=== PATIENT | female | born 1980 | race Caucasian/White ===

== ENCOUNTER 2020-10-14 10:59 | Emergency (ER) | payer SELFPAY ==
[~2020-10-14] VITALS: Ht 180.3 cm; Wt 64.0 kg
--- NOTE | 2020-10-14 11:20 | NUR ---
PT BIB FRIEND VIA POV. PER PT SHE HAS RELAPSED ON HEROIN AFTER 3 YEARS CLEAN. PT USED BOTH HEROIN AND METH APPROX A WEEK AGO. PT NOW HAS BILAT LOWER LEG SWELLING AND EDEMA. PT STATES NO MEDICAL HX. PT RESTING IN [facility], FRIEND AT BEDSIDE, [place] AT THIS TIME, WCTM.
[2020-10-14] MEDS ORDERED: KETOROLAC 30 MG/1 ML ONE (11:55)
[2020-10-14] MEDS ORDERED: MAALOX/HYOSCYAMINE/LIDOCAINE 45 ML BTL ONE (11:57)
[2020-10-14] MEDS ORDERED: ONDANSETRON 2MG/ML, 2ML ONE (11:57)
[2020-10-14] MEDS ORDERED: SODIUM CHLORIDE 0.9% 1,000ML IVBOLUS ONE (12:00)
[2020-10-14] MEDS ORDERED: AMPICILLIN/SULBACTAM 3 GM in SODIUM CHLORIDE 0.9% 100 ML IV ONE (12:00)
[2020-10-14] MEDS ORDERED: KETOROLAC 30 MG/1 ML IVPush ONE (12:00)
[2020-10-14] MEDS ORDERED: maalox/diphenh/lido/sucralfate 5 ML PO PRN (12:00)
[2020-10-14] MEDS ORDERED: ONDANSETRON 2MG/ML, 2ML IVPush ONE (12:00)
[2020-10-14 12:13] LABS: ALBUMIN 2.2 g/dL (3.4-5.0); ANION GAP 5 mmol/L (5-15); CHLORIDE 89 mmol/L (98-107)
[2020-10-14 12:18] LABS: ALANINE AMINOTRANSFERASE 37 U/L (12-78); ALKALINE PHOSPHATASE 192 U/L (45-117); BILIRUBIN,TOTAL 0.7 mg/dL (0.2-1.0); CREATININE 0.61 mg/dL (0.55-1.02); TOTAL PROTEIN 6.3 g/dL (6.4-8.2)
--- NOTE | 2020-10-14 12:23 | NUR ---
TASK RN: PIV PLACED. MEDS ADMIN PER AUG RUNNING. MED REQUESTED FROM JANEL. Addendum: 10/14/20 at 1226 by BRISSA REPORT GIVEN TO PRIMARY RN.
[2020-10-14 12:25] LABS: BASOPHILS % (AUTO) 0 % (0-1); EOSINOPHILS % (AUTO) 0 % (1-7); LYMPHOCYTES % (AUTO) 5 % (22-44); MEAN CORPUSCULAR HEMOGLOBIN 29.1 pg (27.0-34.8); MEAN CORPUSCULAR HGB CONC 33.9 g/dL (32.4-35.8); MEAN PLATELET VOLUME 7.3 fL (7.4-10.4); MONOCYTES % (AUTO) 3 % (2-9); NEUTROPHILS % (AUTO) 92 % (42-75); PLATELET COUNT 193 x10^3/uL (130-400); RED CELL DISTRIBUTION WIDTH 14.9 % (9.6-15.2)
[2020-10-14 12:51] LABS: MD SCAN
[2020-10-14] MEDS ORDERED: POTASSIUM CHLORIDE 10% 40 MEQ/30 ML UDC PO ONE (13:00)
[2020-10-14] MEDS ORDERED: POTASSIUM CHLORIDE 40 MEQ in SODIUM CHLORIDE 0.9% 250 ML IV ONE (13:00)
--- NOTE | 2020-10-14 13:40 | NUR ---
Plan of care discussed. Pt will be held for two more hours and monitored.
[2020-10-14 14:30] LABS: ALBUMIN 1.8 g/dL (3.4-5.0); ANION GAP 5 mmol/L (5-15); CALCIUM 7.5 mg/dL (8.5-10.1); CHLORIDE 94 mmol/L (98-107); CREATININE 0.49 mg/dL (0.55-1.02)
--- NOTE | 2020-10-14 15:07 | NUR ---
This RN spoke with Dr. Patel and Mora MURRELL. They are aware of patients labs and states that patient arturo be discharged home.
--- NOTE | 2020-10-14 15:41 | NUR ---
Patient states to this RN that she last used Heroin at 3am this morning and wants to be admitted, she wants help and she needs help to take care of herself. ERP Dr. Patel and Mora DEL RIO aware.
[2020-10-14 15:57] VITALS: BP 98/51
--- NOTE | 2020-10-14 16:11 | NUR ---
Pt request to discharge home and will follow up for detox for outpatient. 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
== END 2020-10-14 16:17 | disposition home or self-care (01) ==
LOC: ED 16:16
DX: F11.129 Opioid abuse with intoxication, unspecified (principal); F15.10 Other stimulant abuse, uncomplicated; F17.210 Nicotine dependence, cigarettes, uncomplicated; L03.115 Cellulitis of right lower limb; I49.1 Atrial premature depolarization; E87.6 Hypokalemia; E87.1 Hypo-osmolality and hyponatremia; Z79.899 Other long term (current) drug therapy
CPT/HCPCS: 36415; 80048; 80053; 82040; 83735; 83880; 85025; 93005; 93970; 96365; 96375; 99285; J0295; J1885; J2405; J3480; J7030; J7050

== ENCOUNTER 2020-10-20 14:05 | Inpatient (IN) | payer MEDICAID ==
[~2020-10-20] VITALS: Ht 177.8 cm; Wt 64.9 kg
[2020-10-20] MEDS ORDERED: KETOROLAC 30 MG/1 ML IVPush ONE (15:00)
[2020-10-20] MEDS ORDERED: AMPICILLIN/SULBACTAM 3 GM in SODIUM CHLORIDE 0.9% 100 ML IV ONE (15:00)
[2020-10-20] MEDS ORDERED: SODIUM CHLORIDE 0.9% 1,000ML IVBOLUS ONE (15:00)
[2020-10-20] MEDS ORDERED: ACETAMINOPHEN 325 MG TABLET PO ONE (15:00)
[2020-10-20] MEDS ORDERED: VANCOMYCIN PER PHARMACY MC PRN ×2 (15:00→21:00)
[2020-10-20 15:02] LABS: BASOPHILS % (AUTO) 1 % (0-1); EOSINOPHILS % (AUTO) 1 % (1-7); LYMPHOCYTES % (AUTO) 12 % (22-44); MEAN CORPUSCULAR HEMOGLOBIN 29.1 pg (27.0-34.8); MEAN CORPUSCULAR HGB CONC 33.5 g/dL (32.4-35.8); MEAN PLATELET VOLUME 6.7 fL (7.4-10.4); MONOCYTES % (AUTO) 6 % (2-9); NEUTROPHILS % (AUTO) 80 % (42-75); PLATELET COUNT 330 x10^3/uL (130-400); RED BLOOD COUNT 3.64 x10^6/uL (3.82-5.3); RED CELL DISTRIBUTION WIDTH 14.9 % (9.6-15.2)
[2020-10-20] MEDS ORDERED: KETOROLAC 30 MG/1 ML ONE (15:08)
[2020-10-20] MEDS ORDERED: ACETAMINOPHEN 325 MG TABLET ONE (15:08)
[2020-10-20 15:22] LABS: ALBUMIN 2.3 g/dL (3.4-5.0); ANION GAP 7 mmol/L (5-15); CALCIUM 8.4 mg/dL (8.5-10.1); CHLORIDE 95 mmol/L (98-107); CREATININE 0.73 mg/dL (0.55-1.02)
--- NOTE | 2020-10-20 15:30 | NUR ---
PT BIB SELF FOR COMPLAINTS OF SPASMS IN LOW BACK AND L LEG. BILAT V SWOLLEN FEET AND LOWER LEGS. 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 (HEROIN AND METH). PT RESTING IN [facility], MONITORING IN PLACE, [place] AT THIS TIME, TM.
[2020-10-20] MEDS ORDERED: VANCOMYCIN 1,600 MG in SODIUM CHLORIDE 0.9% 250 ML IV ONE (16:00)
[2020-10-20 16:18] LABS: HCT (SEDRATE) 31.5 % (34.6-47.8)
--- NOTE | 2020-10-20 17:03 | NUR ---
PT TO CT AT THIS TIME.
[2020-10-20] MEDS ORDERED: SODIUM CHLORIDE FLUSH 10ML SYR IVF PRN (18:00)
--- NOTE | 2020-10-20 18:00 | NUR ---
PT PROVIDED SNACK, ANDREW MURRELL.
[2020-10-20] MEDS ORDERED: ONDANSETRON 2MG/ML, 2ML IVPush PRN (19:00)
[2020-10-20] MEDS ORDERED: PROMETHAZINE 25 MG/ML, 1ML IM PRN (19:00)
[2020-10-20] MEDS ORDERED: BISACODYL 10 MG SUPP PR PRN (19:00)
[2020-10-20] MEDS ORDERED: ONDANSETRON ODT 4 MG PO PRN (19:00)
[2020-10-20] MEDS ORDERED: hydrALAzine 20 MG/ML, 1ML IVPush PRN (19:00)
[2020-10-20] MEDS: ENOXAPARIN 40 MG/0.4 ML SQ SCH (20:17)
[2020-10-20] MEDS: SODIUM CHLORIDE 0.9% 1,000 ML IV SCH (20:17)
[2020-10-20] MEDS ORDERED: [UNRECOGNIZED DRUG - REMARK] MC SCH (21:00)
[2020-10-20 21:03] VITALS: BP 96/57
[2020-10-20] MEDS: NICOTINE 7 MG/24 HR PATCH.TD24 TD SCH (21:49)
[2020-10-20] MEDS: CEFTRIAXONE 2 GM in DEXTROSE 5% 50 ML IVPB SCH (21:49)
[2020-10-20] MEDS ORDERED: PHARMACOKINETIC CONSULTATION MC ONE (22:00)
[2020-10-20] MEDS ORDERED: PHARMACOKINETIC MONITORING MC PRN (22:00)
[2020-10-21] VITALS (8 sets, daily range): BP systolic 105–168; BP diastolic 59–76
[2020-10-21 00:25] LABS: MICROSCOPIC NOT IND
[2020-10-21] MEDS: OXYcodone IR 5MG TABLET PO PRN ×4 (02:05→19:41)
[2020-10-21 03:06] LABS: BASOPHILS % (AUTO) 1 % (0-1); EOSINOPHILS % (AUTO) 2 % (1-7); LYMPHOCYTES % (AUTO) 12 % (22-44); MEAN CORPUSCULAR HEMOGLOBIN 29.3 pg (27.0-34.8); MEAN PLATELET VOLUME 6.5 fL (7.4-10.4); MONOCYTES % (AUTO) 7 % (2-9); NEUTROPHILS % (AUTO) 79 % (42-75); PLATELET COUNT 275 x10^3/uL (130-400); RED BLOOD COUNT 3.23 x10^6/uL (3.82-5.3); RED CELL DISTRIBUTION WIDTH 15.1 % (9.6-15.2)
[2020-10-21 03:11] LABS: INTERNATIONAL NORMALIZED RATIO 1.1 (0.93-1.1); PROTHROMBIN TIME 11.8 Seconds (9.6-11.5)
[2020-10-21 03:15] LABS: ALBUMIN 1.8 g/dL (3.4-5.0); ANION GAP 6 mmol/L (5-15); CALCIUM 7.2 mg/dL (8.5-10.1); CHLORIDE 103 mmol/L (98-107)
[2020-10-21 03:17] LABS: TROPONIN I < 0.015 ng/mL (0.000-0.045)
[2020-10-21 03:25] LABS: ALANINE AMINOTRANSFERASE 31 U/L (12-78); ALKALINE PHOSPHATASE 92 U/L (45-117); BILIRUBIN,TOTAL 0.3 mg/dL (0.2-1.0); CHOL/HDL RATIO 6.1; CHOLESTEROL, TOTAL 73 mg/dL (140-239); CREATININE 0.63 mg/dL (0.55-1.02); HDL CHOL % 16 % (28-40); HDL CHOLESTEROL (DIRECT) 12 mg/dL (40-60); LDL CHOLESTEROL,CALCULATED 39 mg/dL (54-169); LDL/HDL RATIO 3.3 (0.5-3.0); TOTAL PROTEIN 5.7 g/dL (6.4-8.2); TRIGLYCERIDES 110 mg/dL (50-200); VLDL CHOLESTEROL 22 mg/dL (0-25)
[2020-10-21] MEDS: VANCOMYCIN 1,300 MG in SODIUM CHLORIDE 0.9% 250 ML IV SCH ×2 (03:46→16:56)
[2020-10-21] MEDS: SODIUM CHLORIDE 0.9% 1,000 ML IV SCH ×2 (03:46→12:36)
[2020-10-21] MEDS ORDERED: MORPHINE SULFATE 4 MG/ML, 1ML IVPush PRN (09:30)
[2020-10-21] MEDS: LACTATED RINGERS 1,000 ML IV SCH (15:07)
[2020-10-21] MEDS: ENOXAPARIN 40 MG/0.4 ML SQ SCH (19:40)
[2020-10-21] MEDS: CEFTRIAXONE 2 GM in DEXTROSE 5% 50 ML IVPB SCH (21:36)
[2020-10-21] MEDS: NICOTINE 7 MG/24 HR PATCH.TD24 TD SCH (21:36)
[2020-10-22 00:15] VITALS: BP 113/61
[2020-10-22] MEDS: OXYcodone IR 5MG TABLET PO PRN ×5 (00:15→21:18)
[2020-10-22] MEDS: VANCOMYCIN 1,300 MG in SODIUM CHLORIDE 0.9% 250 ML IV SCH ×2 (04:10→16:00)
[2020-10-22 05:24] LABS: BASOPHILS % (AUTO) 1 % (0-1); EOSINOPHILS % (AUTO) 2 % (1-7); LYMPHOCYTES % (AUTO) 19 % (22-44); MEAN CORPUSCULAR HEMOGLOBIN 29.6 pg (27.0-34.8); MEAN CORPUSCULAR HGB CONC 34.7 g/dL (32.4-35.8); MEAN PLATELET VOLUME 6.6 fL (7.4-10.4); MONOCYTES % (AUTO) 9 % (2-9); NEUTROPHILS % (AUTO) 71 % (42-75); PLATELET COUNT 331 x10^3/uL (130-400); RED BLOOD COUNT 3.34 x10^6/uL (3.82-5.3)
[2020-10-22 05:32] LABS: CHLORIDE 104 mmol/L (98-107)
[2020-10-22 05:41] LABS: ALANINE AMINOTRANSFERASE 39 U/L (12-78); ALBUMIN 1.9 g/dL (3.4-5.0); ALKALINE PHOSPHATASE 83 U/L (45-117); ANION GAP 7 mmol/L (5-15); BILIRUBIN,TOTAL 0.4 mg/dL (0.2-1.0); CALCIUM 8.1 mg/dL (8.5-10.1); CREATININE 0.47 mg/dL (0.55-1.02); FREE T4 (FREE THYROXINE) 1.21 ng/dL (0.76-1.46); TOTAL PROTEIN 6.2 g/dL (6.4-8.2)
[2020-10-22 06:12] VITALS: BP 118/67
[2020-10-22] MEDS: LACTATED RINGERS 1,000 ML IV SCH (08:44)
[2020-10-22 11:32] VITALS: BP 108/68
[2020-10-22] MEDS: VANCOMYCIN 1,000 MG in SODIUM CHLORIDE 0.9% 250 ML IV SCH (16:58)
[2020-10-22 18:56] VITALS: BP 113/74
[2020-10-22] MEDS: ENOXAPARIN 40 MG/0.4 ML SQ SCH (19:51)
[2020-10-22] MEDS: MELATONIN 3 MG TABLET PO PRN (19:51)
[2020-10-22] MEDS: NICOTINE 7 MG/24 HR PATCH.TD24 TD SCH (19:51)
[2020-10-23] MEDS: VANCOMYCIN 1,000 MG in SODIUM CHLORIDE 0.9% 250 ML IV SCH ×3 (00:29→17:06)
[2020-10-23] MEDS: OXYcodone IR 5MG TABLET PO PRN ×5 (01:48→21:02)
[2020-10-23 02:00] VITALS: BP 119/78
[2020-10-23 04:57] LABS: BASOPHILS % (AUTO) 1 % (0-1); EOSINOPHILS % (AUTO) 2 % (1-7); LYMPHOCYTES % (AUTO) 22 % (22-44); MEAN CORPUSCULAR HEMOGLOBIN 29.4 pg (27.0-34.8); MEAN CORPUSCULAR HGB CONC 34.4 g/dL (32.4-35.8); MEAN PLATELET VOLUME 6.3 fL (7.4-10.4); MONOCYTES % (AUTO) 8 % (2-9); NEUTROPHILS % (AUTO) 68 % (42-75); PLATELET COUNT 382 x10^3/uL (130-400); RED BLOOD COUNT 3.47 x10^6/uL (3.82-5.3); RED CELL DISTRIBUTION WIDTH 14.6 % (9.6-15.2)
[2020-10-23 05:02] LABS: CALCIUM 8.3 mg/dL (8.5-10.1); CREATININE 0.47 mg/dL (0.55-1.02)
[2020-10-23 05:13] LABS: ANION GAP 5 mmol/L (5-15); CHLORIDE 102 mmol/L (98-107)
[2020-10-23 06:38] VITALS: BP 118/69
[2020-10-23 14:23] VITALS: BP 113/72
[2020-10-23 18:31] VITALS: BP 108/67
[2020-10-23] MEDS: NICOTINE 7 MG/24 HR PATCH.TD24 TD SCH (21:01)
[2020-10-23] MEDS: ENOXAPARIN 40 MG/0.4 ML SQ SCH (21:02)
[2020-10-23] MEDS: TRAZODONE 50MG TABLET PO PRN (21:02)
[2020-10-24] MEDS: OXYcodone IR 5MG TABLET PO PRN ×4 (00:15→20:05)
[2020-10-24] MEDS: VANCOMYCIN 1,000 MG in SODIUM CHLORIDE 0.9% 250 ML IV SCH ×3 (00:16→16:45)
[2020-10-24 02:00] VITALS: BP 113/72
[2020-10-24 05:20] LABS: BASOPHILS % (AUTO) 1 % (0-1); EOSINOPHILS % (AUTO) 2 % (1-7); LYMPHOCYTES % (AUTO) 23 % (22-44); MEAN CORPUSCULAR HGB CONC 34.1 g/dL (32.4-35.8); MEAN PLATELET VOLUME 6.3 fL (7.4-10.4); MONOCYTES % (AUTO) 8 % (2-9); NEUTROPHILS % (AUTO) 67 % (42-75); PLATELET COUNT 401 x10^3/uL (130-400); RED BLOOD COUNT 3.61 x10^6/uL (3.82-5.3); RED CELL DISTRIBUTION WIDTH 14.6 % (9.6-15.2)
[2020-10-24 05:24] LABS: ANION GAP 6 mmol/L (5-15); CALCIUM 8.5 mg/dL (8.5-10.1); CHLORIDE 102 mmol/L (98-107)
[2020-10-24 05:27] LABS: CREATININE 0.54 mg/dL (0.55-1.02)
[2020-10-24] MEDS: POLYETHYLENE GLYCOL 17 GM PACKET PO PRN (05:53)
[2020-10-24 07:32] VITALS: BP 105/61
[2020-10-24] MEDS: DOCUSATE 100 MG CAPSULE PO PRN (14:58)
[2020-10-24 15:02] VITALS: BP 112/73
[2020-10-24 20:00] VITALS: BP 133/67
[2020-10-24] MEDS: ACETAMINOPHEN 325 MG TABLET PO PRN (20:04)
[2020-10-24] MEDS: NICOTINE 7 MG/24 HR PATCH.TD24 TD SCH (20:06)
[2020-10-24] MEDS: ENOXAPARIN 40 MG/0.4 ML SQ SCH (20:07)
[2020-10-24 21:03] VITALS: BP 109/72
[2020-10-25] MEDS: OXYcodone IR 5MG TABLET PO PRN ×4 (00:41→17:38)
[2020-10-25] MEDS: VANCOMYCIN 1,000 MG in SODIUM CHLORIDE 0.9% 250 ML IV SCH ×3 (00:41→16:22)
[2020-10-25] MEDS: TRAZODONE 50MG TABLET PO PRN ×2 (00:41→20:14)
[2020-10-25] MEDS: ACETAMINOPHEN 325 MG TABLET PO PRN ×4 (00:41→17:38)
[2020-10-25 00:45] VITALS: BP 92/53
[2020-10-25 01:46] VITALS: BP 104/62
[2020-10-25 04:29] LABS: BASOPHILS % (AUTO) 1 % (0-1); EOSINOPHILS % (AUTO) 3 % (1-7); LYMPHOCYTES % (AUTO) 24 % (22-44); MEAN CORPUSCULAR HGB CONC 34.2 g/dL (32.4-35.8); MEAN PLATELET VOLUME 6.3 fL (7.4-10.4); MONOCYTES % (AUTO) 8 % (2-9); NEUTROPHILS % (AUTO) 64 % (42-75); PLATELET COUNT 419 x10^3/uL (130-400); RED BLOOD COUNT 3.71 x10^6/uL (3.82-5.3); RED CELL DISTRIBUTION WIDTH 14.8 % (9.6-15.2)
[2020-10-25 04:40] LABS: ANION GAP 5 mmol/L (5-15); CALCIUM 8.3 mg/dL (8.5-10.1); CHLORIDE 105 mmol/L (98-107)
[2020-10-25 04:41] LABS: CREATININE 0.48 mg/dL (0.55-1.02)
[2020-10-25 08:37] VITALS: BP 97/60
[2020-10-25 15:01] VITALS: BP 96/57
[2020-10-25 19:23] VITALS: BP 112/62
[2020-10-25] MEDS: ENOXAPARIN 40 MG/0.4 ML SQ SCH (20:12)
[2020-10-25] MEDS: NICOTINE 7 MG/24 HR PATCH.TD24 TD SCH (20:20)
[2020-10-26] MEDS: VANCOMYCIN 1,000 MG in SODIUM CHLORIDE 0.9% 250 ML IV SCH ×3 (00:25→16:11)
[2020-10-26 01:15] VITALS: BP 107/64
[2020-10-26] MEDS: OXYcodone IR 5MG TABLET PO PRN ×4 (01:49→17:46)
[2020-10-26] MEDS: ACETAMINOPHEN 325 MG TABLET PO PRN ×4 (01:50→17:45)
[2020-10-26 08:11] VITALS: BP 93/55
[2020-10-26 15:27] VITALS: BP 106/70
[2020-10-26] MEDS: DOCUSATE 100 MG CAPSULE PO PRN (17:46)
[2020-10-26 20:47] VITALS: BP 103/67
[2020-10-26] MEDS: ENOXAPARIN 40 MG/0.4 ML SQ SCH (21:10)
[2020-10-26] MEDS: TRAZODONE 50MG TABLET PO PRN (21:11)
[2020-10-26] MEDS: NICOTINE 7 MG/24 HR PATCH.TD24 TD SCH (21:11)
[2020-10-27] MEDS: OXYcodone IR 5MG TABLET PO PRN ×5 (00:10→22:45)
[2020-10-27] MEDS: ACETAMINOPHEN 325 MG TABLET PO PRN ×5 (00:10→22:45)
[2020-10-27] MEDS: VANCOMYCIN 1,000 MG in SODIUM CHLORIDE 0.9% 250 ML IV SCH ×2 (00:10→08:30)
[2020-10-27 01:33] VITALS: BP 99/61
[2020-10-27 07:38] VITALS: BP 108/63
[2020-10-27] MEDS: VANCOMYCIN 1,400 MG in SODIUM CHLORIDE 0.9% 250 ML IV SCH ×2 (11:04→22:45)
[2020-10-27] MEDS: DOCUSATE 100 MG CAPSULE PO PRN (11:51)
[2020-10-27 13:45] VITALS: BP 89/46
[2020-10-27 13:48] VITALS: BP 102/62
[2020-10-27 19:41] VITALS: BP 102/66
[2020-10-27] MEDS: TRAZODONE 50MG TABLET PO PRN (20:33)
[2020-10-27] MEDS: ENOXAPARIN 40 MG/0.4 ML SQ SCH (20:33)
[2020-10-27] MEDS: NICOTINE 7 MG/24 HR PATCH.TD24 TD SCH (20:33)
[2020-10-28 01:07] VITALS: BP 100/60
[2020-10-28] MEDS: OXYcodone IR 5MG TABLET PO PRN ×3 (07:21→19:47)
[2020-10-28] MEDS: DOCUSATE 100 MG CAPSULE PO PRN ×2 (07:21→19:46)
[2020-10-28] MEDS: ACETAMINOPHEN 325 MG TABLET PO PRN ×3 (07:21→19:46)
[2020-10-28 07:36] VITALS: BP 104/66
[2020-10-28] MEDS: DAPTOMYCIN 550 MG in SODIUM CHLORIDE 0.9% 100 ML IVPB SCH (09:58)
[2020-10-28 14:38] VITALS: BP 101/61
[2020-10-28 19:37] VITALS: BP 95/56
[2020-10-28] MEDS: NICOTINE 7 MG/24 HR PATCH.TD24 TD SCH (19:45)
[2020-10-28] MEDS: ENOXAPARIN 40 MG/0.4 ML SQ SCH (19:46)
[2020-10-28 19:58] VITALS: BP 107/55
[2020-10-28] MEDS: TRAZODONE 50MG TABLET PO PRN (22:23)
[2020-10-29 00:31] VITALS: BP 110/67
[2020-10-29] MEDS: OXYcodone IR 5MG TABLET PO PRN ×4 (03:41→18:12)
[2020-10-29] MEDS: ACETAMINOPHEN 325 MG TABLET PO PRN ×3 (03:41→18:11)
[2020-10-29 08:10] VITALS: BP 96/63
[2020-10-29] MEDS: DAPTOMYCIN 550 MG in SODIUM CHLORIDE 0.9% 100 ML IVPB SCH (10:27)
[2020-10-29 12:48] VITALS: BP 94/59
[2020-10-29] MEDS: DOCUSATE 100 MG CAPSULE PO PRN (18:11)
[2020-10-29] MEDS: NICOTINE 7 MG/24 HR PATCH.TD24 TD SCH (20:41)
[2020-10-29] MEDS: TRAZODONE 50MG TABLET PO PRN (20:41)
[2020-10-29] MEDS: ENOXAPARIN 40 MG/0.4 ML SQ SCH (20:42)
[2020-10-29 20:47] VITALS: BP 104/61
[2020-10-30] MEDS: ACETAMINOPHEN 325 MG TABLET PO PRN ×5 (00:05→18:33)
[2020-10-30] MEDS: OXYcodone IR 5MG TABLET PO PRN ×5 (00:06→18:34)
[2020-10-30 01:40] VITALS: BP 115/68
[2020-10-30 06:20] LABS: BASOPHILS % (AUTO) 1 % (0-1); EOSINOPHILS % (AUTO) 2 % (1-7); LYMPHOCYTES % (AUTO) 32 % (22-44); MEAN CORPUSCULAR HEMOGLOBIN 29.9 pg (27.0-34.8); MEAN CORPUSCULAR HGB CONC 34.7 g/dL (32.4-35.8); MEAN PLATELET VOLUME 6.1 fL (7.4-10.4); MONOCYTES % (AUTO) 9 % (2-9); NEUTROPHILS % (AUTO) 56 % (42-75); PLATELET COUNT 446 x10^3/uL (130-400); RED BLOOD COUNT 3.59 x10^6/uL (3.82-5.3)
[2020-10-30 06:27] LABS: HCT (SEDRATE) 30.9 % (34.6-47.8)
[2020-10-30 06:34] LABS: CHLORIDE 105 mmol/L (98-107)
[2020-10-30 06:46] LABS: ALANINE AMINOTRANSFERASE 26 U/L (12-78); ALBUMIN 2.6 g/dL (3.4-5.0); ALKALINE PHOSPHATASE 80 U/L (45-117); ANION GAP 4 mmol/L (5-15); BILIRUBIN,TOTAL 0.3 mg/dL (0.2-1.0); CALCIUM 8.7 mg/dL (8.5-10.1); CREATINE KINASE, TOTAL 14 U/L (26-192); CREATININE 0.55 mg/dL (0.55-1.02); TOTAL PROTEIN 7.5 g/dL (6.4-8.2)
[2020-10-30] MEDS: DAPTOMYCIN 550 MG in SODIUM CHLORIDE 0.9% 100 ML IVPB SCH (09:17)
[2020-10-30 09:24] VITALS: BP 97/62
[2020-10-30] MEDS ORDERED: OMNIPAQUE 350 MG/ML, 100ML BOTTLE ONE (10:52)
[2020-10-30 14:11] VITALS: BP 91/50
[2020-10-30 20:01] VITALS: BP 99/65
[2020-10-30] MEDS: NICOTINE 7 MG/24 HR PATCH.TD24 TD SCH (21:09)
[2020-10-30] MEDS: TRAZODONE 50MG TABLET PO PRN (21:09)
[2020-10-30] MEDS: ENOXAPARIN 40 MG/0.4 ML SQ SCH (21:10)
[2020-10-31 01:30] VITALS: BP 101/67
[2020-10-31] MEDS: OXYcodone IR 5MG TABLET PO PRN ×3 (03:19→18:00)
[2020-10-31] MEDS: ACETAMINOPHEN 325 MG TABLET PO PRN ×3 (03:19→18:00)
[2020-10-31 05:24] LABS: BASOPHILS % (AUTO) 2 % (0-1); EOSINOPHILS % (AUTO) 2 % (1-7); LYMPHOCYTES % (AUTO) 22 % (22-44); MEAN CORPUSCULAR HEMOGLOBIN 29.6 pg (27.0-34.8); MEAN CORPUSCULAR HGB CONC 34.2 g/dL (32.4-35.8); MEAN PLATELET VOLUME 6.1 fL (7.4-10.4); MONOCYTES % (AUTO) 7 % (2-9); NEUTROPHILS % (AUTO) 68 % (42-75); PLATELET COUNT 416 x10^3/uL (130-400); RED BLOOD COUNT 3.64 x10^6/uL (3.82-5.3); RED CELL DISTRIBUTION WIDTH 15.2 % (9.6-15.2)
[2020-10-31 05:35] LABS: ALANINE AMINOTRANSFERASE 21 U/L (12-78); ALBUMIN 2.7 g/dL (3.4-5.0); ANION GAP 6 mmol/L (5-15); CALCIUM 9.1 mg/dL (8.5-10.1); CHLORIDE 105 mmol/L (98-107)
[2020-10-31 05:37] LABS: ALKALINE PHOSPHATASE 84 U/L (45-117); BILIRUBIN,TOTAL 0.2 mg/dL (0.2-1.0); CREATININE 0.59 mg/dL (0.55-1.02); TOTAL PROTEIN 7.6 g/dL (6.4-8.2)
[2020-10-31 07:31] VITALS: BP 90/48
[2020-10-31] MEDS: DIPHENHYDRAMINE 50 MG/ML, 1ML IVPush ONE ×2 (08:30→08:52)
[2020-10-31] MEDS ORDERED: DIPHENHYDRAMINE 25 MG CAPSULE PO ONE (09:30)
[2020-10-31] MEDS ORDERED: DAPTOMYCIN 600 MG in SODIUM CHLORIDE 0.9% 100 ML IVPB SCH (09:30)
[2020-10-31] MEDS: CEFTAROLINE 600 MG in SODIUM CHLORIDE 0.9% 100 ML IV SCH ×2 (11:41→19:43)
[2020-10-31 15:20] VITALS: BP 98/65
[2020-10-31] MEDS: DIPHENHYDRAMINE 50 MG/ML, 1ML IVPush PRN (17:51)
[2020-10-31 19:41] VITALS: BP 101/73
[2020-10-31] MEDS: ENOXAPARIN 40 MG/0.4 ML SQ SCH (20:55)
[2020-10-31] MEDS: NICOTINE 7 MG/24 HR PATCH.TD24 TD SCH (20:56)
[2020-10-31] MEDS: TRAZODONE 100MG TABLET PO PRN (20:56)
[2020-10-31] MEDS: MELATONIN 3 MG TABLET PO PRN (20:56)
[2020-11-01 01:18] VITALS: BP 97/60
[2020-11-01] MEDS: ACETAMINOPHEN 325 MG TABLET PO PRN ×4 (03:40→17:37)
[2020-11-01] MEDS: OXYcodone IR 5MG TABLET PO PRN ×5 (03:40→21:35)
[2020-11-01] MEDS: CEFTAROLINE 600 MG in SODIUM CHLORIDE 0.9% 100 ML IV SCH ×3 (03:41→19:18)
[2020-11-01 05:42] LABS: BASOPHILS % (AUTO) 1 % (0-1); EOSINOPHILS % (AUTO) 5 % (1-7); LYMPHOCYTES % (AUTO) 24 % (22-44); MEAN CORPUSCULAR HEMOGLOBIN 29.9 pg (27.0-34.8); MEAN CORPUSCULAR HGB CONC 35.1 g/dL (32.4-35.8); MEAN PLATELET VOLUME 6.9 fL (7.4-10.4); MONOCYTES % (AUTO) 7 % (2-9); NEUTROPHILS % (AUTO) 63 % (42-75); PLATELET COUNT 313 x10^3/uL (130-400); RED BLOOD COUNT 3.54 x10^6/uL (3.82-5.3); RED CELL DISTRIBUTION WIDTH 15.6 % (9.6-15.2)
[2020-11-01 05:44] LABS: CHLORIDE 104 mmol/L (98-107)
[2020-11-01 06:01] LABS: ALANINE AMINOTRANSFERASE 19 U/L (12-78); ALBUMIN 2.8 g/dL (3.4-5.0); ALKALINE PHOSPHATASE 87 U/L (45-117); ANION GAP 5 mmol/L (5-15); BILIRUBIN,TOTAL 0.2 mg/dL (0.2-1.0); CALCIUM 8.8 mg/dL (8.5-10.1); CREATININE 0.53 mg/dL (0.55-1.02); TOTAL PROTEIN 7.4 g/dL (6.4-8.2)
[2020-11-01 07:05] VITALS: BP 90/53
[2020-11-01] MEDS: DOCUSATE 100 MG CAPSULE PO PRN (08:31)
[2020-11-01 14:14] VITALS: BP 112/74
[2020-11-01 19:25] VITALS: BP 98/61
[2020-11-01] MEDS: NICOTINE 7 MG/24 HR PATCH.TD24 TD SCH (21:34)
[2020-11-01] MEDS: ENOXAPARIN 40 MG/0.4 ML SQ SCH (21:34)
[2020-11-01] MEDS: TRAZODONE 100MG TABLET PO PRN (21:35)
[2020-11-01] MEDS: MELATONIN 3 MG TABLET PO PRN (21:35)
[2020-11-02 00:44] VITALS: BP 97/59
[2020-11-02] MEDS: CEFTAROLINE 600 MG in SODIUM CHLORIDE 0.9% 100 ML IV SCH ×3 (02:57→19:03)
[2020-11-02] MEDS: OXYcodone IR 5MG TABLET PO PRN ×5 (02:58→20:54)
[2020-11-02 08:04] VITALS: BP 95/61
[2020-11-02] MEDS: ACETAMINOPHEN 325 MG TABLET PO PRN ×3 (08:14→17:25)
[2020-11-02 14:07] VITALS: BP 95/57
[2020-11-02 20:21] VITALS: BP 103/67
[2020-11-02] MEDS: TRAZODONE 100MG TABLET PO PRN (20:53)
[2020-11-02] MEDS: NICOTINE 7 MG/24 HR PATCH.TD24 TD SCH (20:54)
[2020-11-02] MEDS: ENOXAPARIN 40 MG/0.4 ML SQ SCH (20:55)
[2020-11-03] MEDS: OXYcodone IR 5MG TABLET PO PRN ×5 (02:57→21:46)
[2020-11-03] MEDS: CEFTAROLINE 600 MG in SODIUM CHLORIDE 0.9% 100 ML IV SCH ×3 (02:57→20:03)
[2020-11-03 03:03] VITALS: BP 99/65
[2020-11-03 07:49] VITALS: BP 97/59
[2020-11-03] MEDS: ACETAMINOPHEN 325 MG TABLET PO PRN ×3 (12:06→21:46)
[2020-11-03 14:28] VITALS: BP 96/61
[2020-11-03] MEDS: DOCUSATE 100 MG CAPSULE PO PRN (16:56)
[2020-11-03] MEDS: POLYETHYLENE GLYCOL 17 GM PACKET PO PRN (16:56)
[2020-11-03 21:41] VITALS: BP 106/66
[2020-11-03] MEDS: NICOTINE 7 MG/24 HR PATCH.TD24 TD SCH (21:45)
[2020-11-03] MEDS: MELATONIN 3 MG TABLET PO PRN (21:46)
[2020-11-03] MEDS: TRAZODONE 100MG TABLET PO PRN (21:46)
[2020-11-03] MEDS: ENOXAPARIN 40 MG/0.4 ML SQ SCH (21:46)
[2020-11-04 02:00] VITALS: BP 98/65
[2020-11-04] MEDS: CEFTAROLINE 600 MG in SODIUM CHLORIDE 0.9% 100 ML IV SCH ×3 (04:17→19:56)
[2020-11-04] MEDS: OXYcodone IR 5MG TABLET PO PRN ×4 (05:25→21:46)
[2020-11-04 09:25] VITALS: BP 97/57
[2020-11-04] MEDS: ACETAMINOPHEN 325 MG TABLET PO PRN ×2 (10:36→21:48)
[2020-11-04 14:41] VITALS: BP 100/55
[2020-11-04] MEDS: NICOTINE 7 MG/24 HR PATCH.TD24 TD SCH (19:56)
[2020-11-04] MEDS: ENOXAPARIN 40 MG/0.4 ML SQ SCH (19:57)
[2020-11-04 20:29] VITALS: BP 106/62
[2020-11-04] MEDS: MELATONIN 3 MG TABLET PO PRN (21:45)
[2020-11-04] MEDS: TRAZODONE 100MG TABLET PO PRN (21:46)
[2020-11-05] MEDS: CEFTAROLINE 600 MG in SODIUM CHLORIDE 0.9% 100 ML IV SCH ×3 (03:55→21:18)
[2020-11-05] MEDS: OXYcodone IR 5MG TABLET PO PRN ×5 (03:56→22:41)
[2020-11-05] MEDS: ACETAMINOPHEN 325 MG TABLET PO PRN ×5 (03:56→22:40)
[2020-11-05 03:58] VITALS: BP 101/56
[2020-11-05 04:32] LABS: CREATININE 0.66 mg/dL (0.55-1.02)
[2020-11-05 09:08] VITALS: BP 102/66
[2020-11-05 15:15] VITALS: BP 105/65
[2020-11-05 18:24] VITALS: BP 124/65
[2020-11-05] MEDS: ENOXAPARIN 40 MG/0.4 ML SQ SCH (21:00)
[2020-11-05] MEDS: NICOTINE 7 MG/24 HR PATCH.TD24 TD SCH (21:18)
[2020-11-05] MEDS: DIPHENHYDRAMINE 50 MG/ML, 1ML IVPush PRN (21:18)
[2020-11-05] MEDS: MELATONIN 3 MG TABLET PO PRN (22:40)
[2020-11-05] MEDS: TRAZODONE 100MG TABLET PO PRN (22:41)
[2020-11-06 00:20] VITALS: BP 106/71
[2020-11-06] MEDS: CEFTAROLINE 600 MG in SODIUM CHLORIDE 0.9% 100 ML IV SCH ×3 (03:48→19:58)
[2020-11-06] MEDS: ACETAMINOPHEN 325 MG TABLET PO PRN ×4 (05:05→19:58)
[2020-11-06] MEDS: OXYcodone IR 5MG TABLET PO PRN ×4 (05:06→19:59)
[2020-11-06 09:00] VITALS: BP 99/62
[2020-11-06 14:00] VITALS: BP 124/70
[2020-11-06 18:29] VITALS: BP 106/72
[2020-11-06] MEDS: NICOTINE 7 MG/24 HR PATCH.TD24 TD SCH (20:18)
[2020-11-06] MEDS: ENOXAPARIN 40 MG/0.4 ML SQ SCH (20:18)
[2020-11-06] MEDS: TRAZODONE 100MG TABLET PO PRN (21:39)
[2020-11-06] MEDS: DIPHENHYDRAMINE 50 MG/ML, 1ML IVPush PRN (21:39)
[2020-11-06] MEDS: MELATONIN 3 MG TABLET PO PRN (21:39)
[2020-11-07 01:53] VITALS: BP 101/67
[2020-11-07] MEDS: ACETAMINOPHEN 325 MG TABLET PO PRN ×4 (05:04→20:00)
[2020-11-07] MEDS: OXYcodone IR 5MG TABLET PO PRN ×4 (05:05→20:00)
[2020-11-07] MEDS: CEFTAROLINE 600 MG in SODIUM CHLORIDE 0.9% 100 ML IV SCH ×3 (05:06→20:53)
[2020-11-07 06:09] VITALS: BP 106/64
[2020-11-07 12:00] VITALS: BP 103/68
[2020-11-07] MEDS: DIPHENHYDRAMINE 50 MG/ML, 1ML IVPush PRN (21:05)
[2020-11-07] MEDS: TRAZODONE 100MG TABLET PO PRN (21:05)
[2020-11-07] MEDS: MELATONIN 3 MG TABLET PO PRN (21:05)
[2020-11-07] MEDS: ENOXAPARIN 40 MG/0.4 ML SQ SCH (21:05)
[2020-11-07] MEDS: NICOTINE 7 MG/24 HR PATCH.TD24 TD SCH (21:06)
[2020-11-07 21:47] VITALS: BP 114/65
[2020-11-08] MEDS: ACETAMINOPHEN 325 MG TABLET PO PRN ×5 (04:03→22:46)
[2020-11-08] MEDS: OXYcodone IR 5MG TABLET PO PRN ×5 (04:03→22:46)
[2020-11-08] MEDS: CEFTAROLINE 600 MG in SODIUM CHLORIDE 0.9% 100 ML IV SCH ×3 (04:04→21:09)
[2020-11-08 04:13] VITALS: BP 104/62
[2020-11-08 04:49] LABS: CREATININE 0.65 mg/dL (0.55-1.02)
[2020-11-08 16:51] VITALS: BP 129/73
[2020-11-08] MEDS: POLYETHYLENE GLYCOL 17 GM PACKET PO PRN (18:42)
[2020-11-08] MEDS: DOCUSATE 100 MG CAPSULE PO PRN (18:42)
[2020-11-08 19:41] VITALS: BP 105/66
[2020-11-08] MEDS: ENOXAPARIN 40 MG/0.4 ML SQ SCH (21:10)
[2020-11-08] MEDS: NICOTINE 7 MG/24 HR PATCH.TD24 TD SCH (21:11)
[2020-11-08] MEDS: DIPHENHYDRAMINE 50 MG/ML, 1ML IVPush PRN (21:24)
[2020-11-08 22:42] VITALS: BP 131/69
[2020-11-08] MEDS: MELATONIN 3 MG TABLET PO PRN (23:12)
[2020-11-08] MEDS: TRAZODONE 100MG TABLET PO PRN (23:12)
[2020-11-09] MEDS: CEFTAROLINE 600 MG in SODIUM CHLORIDE 0.9% 100 ML IV SCH ×3 (05:47→20:56)
[2020-11-09] MEDS: ACETAMINOPHEN 325 MG TABLET PO PRN ×3 (05:47→18:45)
[2020-11-09] MEDS: OXYcodone IR 5MG TABLET PO PRN ×5 (05:50→23:05)
[2020-11-09 06:08] LABS: BASOPHILS % (AUTO) 1 % (0-1); EOSINOPHILS % (AUTO) 5 % (1-7); LYMPHOCYTES % (AUTO) 31 % (22-44); MEAN CORPUSCULAR HGB CONC 34.5 g/dL (32.4-35.8); MEAN PLATELET VOLUME 6.9 fL (7.4-10.4); MONOCYTES % (AUTO) 11 % (2-9); NEUTROPHILS % (AUTO) 51 % (42-75); PLATELET COUNT 270 x10^3/uL (130-400); RED CELL DISTRIBUTION WIDTH 17.1 % (9.6-15.2)
[2020-11-09 06:13] LABS: ALANINE AMINOTRANSFERASE 16 U/L (12-78); ALBUMIN 2.9 g/dL (3.4-5.0); ANION GAP 6 mmol/L (5-15); CALCIUM 8.8 mg/dL (8.5-10.1); CHLORIDE 107 mmol/L (98-107); CREATININE 0.65 mg/dL (0.55-1.02)
[2020-11-09 06:19] LABS: ALKALINE PHOSPHATASE 66 U/L (45-117); BILIRUBIN,TOTAL 0.3 mg/dL (0.2-1.0); TOTAL PROTEIN 7.3 g/dL (6.4-8.2)
[2020-11-09 06:43] LABS: HCT (SEDRATE) 31.3 % (34.6-47.8)
[2020-11-09 07:47] VITALS: BP 96/59
[2020-11-09 12:47] VITALS: BP 114/71
[2020-11-09 20:19] VITALS: BP 131/81
[2020-11-09] MEDS: DIPHENHYDRAMINE 50 MG/ML, 1ML IVPush PRN (20:55)
[2020-11-09] MEDS: TRAZODONE 100MG TABLET PO PRN (20:55)
[2020-11-09] MEDS: MELATONIN 3 MG TABLET PO PRN (20:55)
[2020-11-09] MEDS: ENOXAPARIN 40 MG/0.4 ML SQ SCH (20:56)
[2020-11-09] MEDS: NICOTINE 7 MG/24 HR PATCH.TD24 TD SCH (21:32)
[2020-11-10 00:58] VITALS: BP 94/65
[2020-11-10] MEDS: CEFTAROLINE 600 MG in SODIUM CHLORIDE 0.9% 100 ML IV SCH ×3 (05:30→21:32)
[2020-11-10] MEDS: OXYcodone IR 5MG TABLET PO PRN ×3 (05:32→16:27)
[2020-11-10] MEDS: ACETAMINOPHEN 325 MG TABLET PO PRN ×3 (05:32→16:27)
[2020-11-10 07:58] VITALS: BP 114/68
[2020-11-10 19:35] VITALS: BP 127/76
[2020-11-10] MEDS: TRAZODONE 100MG TABLET PO PRN (21:17)
[2020-11-10] MEDS: ENOXAPARIN 40 MG/0.4 ML SQ SCH (21:17)
[2020-11-10] MEDS: MELATONIN 3 MG TABLET PO PRN (21:17)
[2020-11-10] MEDS: DIPHENHYDRAMINE 50 MG/ML, 1ML IVPush PRN (21:17)
[2020-11-10] MEDS: NICOTINE 7 MG/24 HR PATCH.TD24 TD SCH (21:19)
[2020-11-11] MEDS: ACETAMINOPHEN 325 MG TABLET PO PRN ×4 (02:30→20:12)
[2020-11-11] MEDS: OXYcodone IR 5MG TABLET PO PRN ×4 (02:31→20:11)
[2020-11-11 02:32] VITALS: BP 94/62
[2020-11-11 03:04] LABS: CREATININE 0.57 mg/dL (0.55-1.02)
[2020-11-11] MEDS: CEFTAROLINE 600 MG in SODIUM CHLORIDE 0.9% 100 ML IV SCH ×3 (05:16→21:33)
[2020-11-11 06:58] VITALS: BP 97/48
[2020-11-11 12:12] VITALS: BP 123/80
[2020-11-11 19:05] VITALS: BP 127/60
[2020-11-11] MEDS: NICOTINE 7 MG/24 HR PATCH.TD24 TD SCH (20:12)
[2020-11-11] MEDS: ENOXAPARIN 40 MG/0.4 ML SQ SCH (20:12)
[2020-11-11] MEDS: TRAZODONE 100MG TABLET PO PRN (21:23)
[2020-11-11] MEDS: MELATONIN 3 MG TABLET PO PRN (21:23)
[2020-11-11] MEDS: DIPHENHYDRAMINE 50 MG/ML, 1ML IVPush PRN (21:24)
[2020-11-11 23:54] VITALS: BP 110/57
[2020-11-12 01:55] VITALS: BP 110/57
[2020-11-12] MEDS: ACETAMINOPHEN 325 MG TABLET PO PRN ×3 (03:10→21:28)
[2020-11-12] MEDS: OXYcodone IR 5MG TABLET PO PRN ×4 (03:13→21:28)
[2020-11-12] MEDS: CEFTAROLINE 600 MG in SODIUM CHLORIDE 0.9% 100 ML IV SCH ×3 (05:45→21:27)
[2020-11-12 06:51] VITALS: BP 93/53
[2020-11-12 15:31] VITALS: BP 111/72
[2020-11-12] MEDS: NICOTINE 7 MG/24 HR PATCH.TD24 TD SCH (20:24)
[2020-11-12] MEDS: MELATONIN 3 MG TABLET PO PRN (20:31)
[2020-11-12] MEDS: DIPHENHYDRAMINE 50 MG/ML, 1ML IVPush PRN (20:32)
[2020-11-12] MEDS: TRAZODONE 100MG TABLET PO PRN (20:32)
[2020-11-12] MEDS: ENOXAPARIN 40 MG/0.4 ML SQ SCH (20:32)
[2020-11-12 20:47] VITALS: BP 127/75
[2020-11-13] MEDS: OXYcodone IR 5MG TABLET PO PRN ×4 (03:51→21:30)
[2020-11-13] MEDS: ACETAMINOPHEN 325 MG TABLET PO PRN ×4 (03:51→21:31)
[2020-11-13] MEDS: CEFTAROLINE 600 MG in SODIUM CHLORIDE 0.9% 100 ML IV SCH ×3 (06:10→21:34)
[2020-11-13 06:34] LABS: BASOPHILS % (AUTO) 1 % (0-1); EOSINOPHILS % (AUTO) 3 % (1-7); LYMPHOCYTES % (AUTO) 31 % (22-44); MEAN CORPUSCULAR HEMOGLOBIN 30.2 pg (27.0-34.8); MEAN CORPUSCULAR HGB CONC 34.5 g/dL (32.4-35.8); MEAN PLATELET VOLUME 6.7 fL (7.4-10.4); MONOCYTES % (AUTO) 9 % (2-9); NEUTROPHILS % (AUTO) 56 % (42-75); PLATELET COUNT 263 x10^3/uL (130-400); RED BLOOD COUNT 3.79 x10^6/uL (3.82-5.3); RED CELL DISTRIBUTION WIDTH 17.4 % (9.6-15.2)
[2020-11-13 06:42] LABS: ALANINE AMINOTRANSFERASE 15 U/L (12-78); ALBUMIN 3.1 g/dL (3.4-5.0); ANION GAP 4 mmol/L (5-15); CALCIUM 8.7 mg/dL (8.5-10.1); CHLORIDE 108 mmol/L (98-107); CREATININE 0.67 mg/dL (0.55-1.02)
[2020-11-13 06:44] VITALS: BP 93/58
[2020-11-13 06:49] LABS: ALKALINE PHOSPHATASE 69 U/L (45-117); BILIRUBIN,TOTAL 0.3 mg/dL (0.2-1.0); TOTAL PROTEIN 7.7 g/dL (6.4-8.2)
[2020-11-13 12:06] VITALS: BP 118/67
[2020-11-13 20:24] VITALS: BP 128/65
[2020-11-13] MEDS: NICOTINE 7 MG/24 HR PATCH.TD24 TD SCH (20:31)
[2020-11-13] MEDS: MELATONIN 3 MG TABLET PO PRN (20:32)
[2020-11-13] MEDS: TRAZODONE 100MG TABLET PO PRN (20:32)
[2020-11-13] MEDS: ENOXAPARIN 40 MG/0.4 ML SQ SCH (20:32)
[2020-11-13] MEDS: DIPHENHYDRAMINE 50 MG/ML, 1ML IVPush PRN (20:32)
[2020-11-14] MEDS: OXYcodone IR 5MG TABLET PO PRN ×4 (03:54→21:45)
[2020-11-14] MEDS: ACETAMINOPHEN 325 MG TABLET PO PRN ×4 (03:54→21:45)
[2020-11-14] MEDS: CEFTAROLINE 600 MG in SODIUM CHLORIDE 0.9% 100 ML IV SCH ×3 (05:05→21:45)
[2020-11-14 06:25] VITALS: BP 96/60
[2020-11-14 12:08] VITALS: BP 108/62
[2020-11-14 19:47] VITALS: BP 123/72
[2020-11-14] MEDS: DOCUSATE 100 MG CAPSULE PO PRN (20:18)
[2020-11-14] MEDS: POLYETHYLENE GLYCOL 17 GM PACKET PO PRN (20:18)
[2020-11-14] MEDS: DIPHENHYDRAMINE 50 MG/ML, 1ML IVPush PRN (20:18)
[2020-11-14] MEDS: MELATONIN 3 MG TABLET PO PRN (20:18)
[2020-11-14] MEDS: TRAZODONE 100MG TABLET PO PRN (20:18)
[2020-11-14] MEDS: ENOXAPARIN 40 MG/0.4 ML SQ SCH (20:18)
[2020-11-14] MEDS: NICOTINE 7 MG/24 HR PATCH.TD24 TD SCH (20:34)
[2020-11-15] MEDS: OXYcodone IR 5MG TABLET PO PRN ×4 (03:07→22:09)
[2020-11-15] MEDS: ACETAMINOPHEN 325 MG TABLET PO PRN (03:07)
[2020-11-15] MEDS: CEFTAROLINE 600 MG in SODIUM CHLORIDE 0.9% 100 ML IV SCH ×3 (05:05→22:09)
[2020-11-15 06:25] VITALS: BP 95/57
[2020-11-15 12:05] VITALS: BP 100/60
[2020-11-15 19:52] VITALS: BP 97/63
[2020-11-15] MEDS: NICOTINE 7 MG/24 HR PATCH.TD24 TD SCH (21:00)
[2020-11-15] MEDS: ENOXAPARIN 40 MG/0.4 ML SQ SCH (21:01)
[2020-11-15] MEDS: DIPHENHYDRAMINE 50 MG/ML, 1ML IVPush PRN (21:07)
[2020-11-15] MEDS: TRAZODONE 100MG TABLET PO PRN (21:07)
[2020-11-15] MEDS: MELATONIN 3 MG TABLET PO PRN (21:07)
[2020-11-16 00:42] VITALS: BP 104/63
[2020-11-16] MEDS: OXYcodone IR 5MG TABLET PO PRN ×3 (03:34→17:29)
[2020-11-16] MEDS: CEFTAROLINE 600 MG in SODIUM CHLORIDE 0.9% 100 ML IV SCH ×3 (05:36→22:18)
[2020-11-16 07:51] VITALS: BP 113/74
[2020-11-16 13:52] VITALS: BP 129/83
[2020-11-16 19:38] VITALS: BP 116/68
[2020-11-16] MEDS: NICOTINE 7 MG/24 HR PATCH.TD24 TD SCH (21:00)
[2020-11-16] MEDS: MELATONIN 3 MG TABLET PO PRN (21:16)
[2020-11-16] MEDS: TRAZODONE 100MG TABLET PO PRN (21:16)
[2020-11-16] MEDS: ENOXAPARIN 40 MG/0.4 ML SQ SCH (21:16)
[2020-11-16] MEDS: DIPHENHYDRAMINE 50 MG/ML, 1ML IVPush PRN (21:17)
[2020-11-16] MEDS ORDERED: CATHFLO-ALTEPLASE 2 MG/2 ML CATHFLUSH ONE (22:00)
[2020-11-17] MEDS: OXYcodone IR 5MG TABLET PO PRN ×3 (01:11→17:23)
[2020-11-17 05:08] LABS: CREATININE 0.65 mg/dL (0.55-1.02)
[2020-11-17] MEDS: CEFTAROLINE 600 MG in SODIUM CHLORIDE 0.9% 100 ML IV SCH ×3 (06:06→22:09)
[2020-11-17 07:36] VITALS: BP 121/77
[2020-11-17 13:11] VITALS: BP 115/56
[2020-11-17] MEDS: DOCUSATE 100 MG CAPSULE PO PRN (16:42)
[2020-11-17] MEDS: POLYETHYLENE GLYCOL 17 GM PACKET PO PRN (16:43)
[2020-11-17 19:29] VITALS: BP 119/74
[2020-11-17] MEDS: NICOTINE 7 MG/24 HR PATCH.TD24 TD SCH (21:00)
[2020-11-17] MEDS: MELATONIN 3 MG TABLET PO PRN (21:05)
[2020-11-17] MEDS: TRAZODONE 100MG TABLET PO PRN (21:05)
[2020-11-17] MEDS: DIPHENHYDRAMINE 50 MG/ML, 1ML IVPush PRN (21:06)
[2020-11-17] MEDS: ENOXAPARIN 40 MG/0.4 ML SQ SCH (21:06)
[2020-11-18] MEDS: ACETAMINOPHEN 325 MG TABLET PO PRN (01:36)
[2020-11-18] MEDS: OXYcodone IR 5MG TABLET PO PRN ×4 (01:36→21:25)
[2020-11-18] MEDS: CEFTAROLINE 600 MG in SODIUM CHLORIDE 0.9% 100 ML IV SCH ×3 (05:50→21:49)
[2020-11-18 07:43] VITALS: BP 93/55
[2020-11-18 13:59] VITALS: BP 106/69
[2020-11-18] MEDS ORDERED: IBUPROFEN 600 MG TABLET PO PRN (16:30)
[2020-11-18 20:14] VITALS: BP 131/86
[2020-11-18] MEDS: NICOTINE 7 MG/24 HR PATCH.TD24 TD SCH (20:14)
[2020-11-18] MEDS: MELATONIN 3 MG TABLET PO PRN (20:19)
[2020-11-18] MEDS: ENOXAPARIN 40 MG/0.4 ML SQ SCH (20:19)
[2020-11-18] MEDS: DIPHENHYDRAMINE 50 MG/ML, 1ML IVPush PRN (20:19)
[2020-11-18] MEDS: TRAZODONE 100MG TABLET PO PRN (20:19)
[2020-11-19] MEDS: OXYcodone IR 5MG TABLET PO PRN ×3 (03:02→18:20)
[2020-11-19] MEDS: CEFTAROLINE 600 MG in SODIUM CHLORIDE 0.9% 100 ML IV SCH ×3 (05:20→21:48)
[2020-11-19] MEDS ORDERED: DIPHENHYDRAMINE 25 MG CAPSULE PO PRN (08:00)
[2020-11-19 08:58] VITALS: BP 116/64
[2020-11-19] MEDS ORDERED: BISACODYL 10 MG SUPP PR SCH (09:00)
[2020-11-19] MEDS: SENNA 176 MG/5 ML ORAL SOL NG SCH (09:00)
[2020-11-19] MEDS: POLYETHYLENE GLYCOL 17 GM PACKET PO PRN (11:22)
[2020-11-19] MEDS: IBUPROFEN 600 MG TABLET PO PRN (15:04)
[2020-11-19 15:36] VITALS: BP 116/73
[2020-11-19 20:11] VITALS: BP 120/76
[2020-11-19] MEDS: ENOXAPARIN 40 MG/0.4 ML SQ SCH (21:26)
[2020-11-19] MEDS: TRAZODONE 100MG TABLET PO PRN (21:26)
[2020-11-19] MEDS: MELATONIN 3 MG TABLET PO PRN (21:26)
[2020-11-19] MEDS: DIPHENHYDRAMINE 50 MG/ML, 1ML IVPush PRN (21:35)
[2020-11-20] MEDS: OXYcodone IR 5MG TABLET PO PRN ×3 (02:36→18:31)
[2020-11-20] MEDS: CEFTAROLINE 600 MG in SODIUM CHLORIDE 0.9% 100 ML IV SCH ×3 (05:13→20:57)
[2020-11-20] MEDS: IBUPROFEN 600 MG TABLET PO PRN ×3 (05:13→17:25)
[2020-11-20 06:19] VITALS: BP 92/52
[2020-11-20] MEDS ORDERED: BISACODYL 10 MG SUPP PR PRN (07:30)
[2020-11-20] MEDS: SENNA 176 MG/5 ML ORAL SOL NG SCH (09:00)
[2020-11-20 13:24] VITALS: BP 109/67
[2020-11-20 18:26] VITALS: BP 118/78
[2020-11-20] MEDS: ACETAMINOPHEN 325 MG TABLET PO PRN (18:31)
[2020-11-20] MEDS: TRAZODONE 100MG TABLET PO PRN (20:24)
[2020-11-20] MEDS: MELATONIN 3 MG TABLET PO PRN (20:24)
[2020-11-20] MEDS: ENOXAPARIN 40 MG/0.4 ML SQ SCH (20:24)
[2020-11-21] MEDS: ACETAMINOPHEN 325 MG TABLET PO PRN ×3 (02:33→20:01)
[2020-11-21] MEDS: OXYcodone IR 5MG TABLET PO PRN ×3 (02:34→20:01)
[2020-11-21] MEDS: CEFTAROLINE 600 MG in SODIUM CHLORIDE 0.9% 100 ML IV SCH ×3 (05:44→21:39)
[2020-11-21 06:55] VITALS: BP 97/61
[2020-11-21] MEDS: IBUPROFEN 600 MG TABLET PO PRN ×2 (08:45→17:56)
[2020-11-21] MEDS: SENNA 176 MG/5 ML ORAL SOL NG SCH (09:00)
[2020-11-21] MEDS ORDERED: DOCUSATE 100 MG CAPSULE PO PRN (11:30)
[2020-11-21 13:56] VITALS: BP 112/67
[2020-11-21 19:26] VITALS: BP 130/80
[2020-11-21] MEDS: ENOXAPARIN 40 MG/0.4 ML SQ SCH (21:38)
[2020-11-21] MEDS: TRAZODONE 100MG TABLET PO PRN (21:38)
[2020-11-21] MEDS: MELATONIN 3 MG TABLET PO PRN (21:38)
[2020-11-21] MEDS: HYDROXYZINE PAMOATE 50MG CAP PO PRN (21:38)
[2020-11-22 01:35] VITALS: BP 100/57
[2020-11-22] MEDS: ACETAMINOPHEN 325 MG TABLET PO PRN ×3 (04:51→21:34)
[2020-11-22] MEDS: OXYcodone IR 5MG TABLET PO PRN ×3 (04:51→21:32)
[2020-11-22] MEDS: CEFTAROLINE 600 MG in SODIUM CHLORIDE 0.9% 100 ML IV SCH ×3 (05:02→21:32)
[2020-11-22 05:20] LABS: BASOPHILS % (AUTO) 1 % (0-1); EOSINOPHILS % (AUTO) 5 % (1-7); LYMPHOCYTES % (AUTO) 35 % (22-44); MEAN CORPUSCULAR HEMOGLOBIN 30.5 pg (27.0-34.8); MEAN CORPUSCULAR HGB CONC 34.2 g/dL (32.4-35.8); MEAN PLATELET VOLUME 6.9 fL (7.4-10.4); MONOCYTES % (AUTO) 11 % (2-9); NEUTROPHILS % (AUTO) 46 % (42-75); PLATELET COUNT 218 x10^3/uL (130-400); RED BLOOD COUNT 3.75 x10^6/uL (3.82-5.3); RED CELL DISTRIBUTION WIDTH 16.6 % (9.6-15.2)
[2020-11-22 05:26] LABS: HCT (SEDRATE) 33.4 % (34.6-47.8)
[2020-11-22 05:27] LABS: ALANINE AMINOTRANSFERASE 15 U/L (12-78); ANION GAP 8 mmol/L (5-15); C-REACTIVE PROTEIN, QUANT 0.35 mg/dL (0.02-0.49); CALCIUM 8.5 mg/dL (8.5-10.1); CHLORIDE 112 mmol/L (98-107); CREATININE 0.62 mg/dL (0.55-1.02)
[2020-11-22 05:30] LABS: ALKALINE PHOSPHATASE 64 U/L (45-117); BILIRUBIN,TOTAL 0.2 mg/dL (0.2-1.0)
[2020-11-22 06:39] VITALS: BP 107/66
[2020-11-22 16:08] VITALS: BP 134/85
[2020-11-22] MEDS: POLYETHYLENE GLYCOL 17 GM PACKET PO PRN (17:04)
[2020-11-22] MEDS: IBUPROFEN 600 MG TABLET PO PRN (17:04)
[2020-11-22 19:21] VITALS: BP 127/59
[2020-11-22] MEDS: TRAZODONE 100MG TABLET PO PRN (20:31)
[2020-11-22] MEDS: MELATONIN 3 MG TABLET PO PRN (20:31)
[2020-11-22] MEDS: ENOXAPARIN 40 MG/0.4 ML SQ SCH (20:31)
[2020-11-22] MEDS: HYDROXYZINE PAMOATE 50MG CAP PO PRN (20:31)
[2020-11-23] MEDS: CEFTAROLINE 600 MG in SODIUM CHLORIDE 0.9% 100 ML IV SCH ×3 (06:37→21:46)
[2020-11-23] MEDS: ACETAMINOPHEN 325 MG TABLET PO PRN ×2 (06:38→17:48)
[2020-11-23] MEDS: OXYcodone IR 5MG TABLET PO PRN ×2 (06:39→17:48)
[2020-11-23 07:51] VITALS: BP 105/66
[2020-11-23] MEDS: IBUPROFEN 600 MG TABLET PO PRN ×2 (12:53→21:51)
[2020-11-23 14:31] VITALS: BP 115/75
[2020-11-23 19:28] VITALS: BP 111/67
[2020-11-23] MEDS: HYDROXYZINE PAMOATE 50MG CAP PO PRN (20:17)
[2020-11-23] MEDS: ENOXAPARIN 40 MG/0.4 ML SQ SCH (20:17)
[2020-11-23] MEDS: MELATONIN 3 MG TABLET PO PRN (20:18)
[2020-11-23] MEDS: TRAZODONE 100MG TABLET PO PRN (20:18)
[2020-11-24] MEDS: CEFTAROLINE 600 MG in SODIUM CHLORIDE 0.9% 100 ML IV SCH ×3 (05:54→22:58)
[2020-11-24] MEDS: ACETAMINOPHEN 325 MG TABLET PO PRN ×2 (05:54→17:58)
[2020-11-24] MEDS: OXYcodone IR 5MG TABLET PO PRN ×2 (05:55→17:58)
[2020-11-24 07:37] VITALS: BP 124/50
[2020-11-24] MEDS: IBUPROFEN 600 MG TABLET PO PRN ×2 (12:11→22:58)
[2020-11-24 13:05] VITALS: BP 110/56
[2020-11-24 19:49] VITALS: BP 119/77
[2020-11-24] MEDS: ENOXAPARIN 40 MG/0.4 ML SQ SCH (21:08)
[2020-11-24] MEDS: TRAZODONE 100MG TABLET PO PRN (21:08)
[2020-11-24] MEDS: MELATONIN 3 MG TABLET PO PRN (21:08)
[2020-11-24] MEDS: HYDROXYZINE PAMOATE 50MG CAP PO PRN (21:08)
[2020-11-25 06:25] VITALS: BP 95/57
[2020-11-25] MEDS: OXYcodone IR 5MG TABLET PO PRN ×2 (06:33→18:10)
[2020-11-25] MEDS: ACETAMINOPHEN 325 MG TABLET PO PRN ×2 (06:33→18:10)
[2020-11-25] MEDS: CEFTAROLINE 600 MG in SODIUM CHLORIDE 0.9% 100 ML IV SCH ×3 (06:33→23:18)
[2020-11-25 12:24] VITALS: BP 116/64
[2020-11-25] MEDS: IBUPROFEN 600 MG TABLET PO PRN (13:20)
[2020-11-25] MEDS ORDERED: CATHFLO-ALTEPLASE 2 MG/2 ML CATHFLUSH ONE ×2 (15:00→19:00)
[2020-11-25 19:44] VITALS: BP 121/60
[2020-11-25] MEDS: TRAZODONE 100MG TABLET PO PRN (20:53)
[2020-11-25] MEDS: MELATONIN 3 MG TABLET PO PRN (20:53)
[2020-11-25] MEDS: ENOXAPARIN 40 MG/0.4 ML SQ SCH (20:54)
[2020-11-25] MEDS: HYDROXYZINE PAMOATE 50MG CAP PO PRN (20:54)
[2020-11-26 00:40] VITALS: BP 106/67
[2020-11-26 06:46] VITALS: BP 101/51
[2020-11-26] MEDS: ACETAMINOPHEN 325 MG TABLET PO PRN ×2 (07:37→17:42)
[2020-11-26] MEDS: OXYcodone IR 5MG TABLET PO PRN ×2 (07:37→17:42)
[2020-11-26] MEDS: CEFTAROLINE 600 MG in SODIUM CHLORIDE 0.9% 100 ML IV SCH ×2 (08:25→16:25)
[2020-11-26 12:59] VITALS: BP 118/66
[2020-11-26] MEDS: IBUPROFEN 600 MG TABLET PO PRN (13:09)
[2020-11-26 18:44] VITALS: BP 117/65
[2020-11-26] MEDS: HYDROXYZINE PAMOATE 50MG CAP PO PRN (20:23)
[2020-11-26] MEDS: MELATONIN 3 MG TABLET PO PRN (20:23)
[2020-11-26] MEDS: TRAZODONE 100MG TABLET PO PRN (20:23)
[2020-11-26] MEDS: ENOXAPARIN 40 MG/0.4 ML SQ SCH (20:24)
[2020-11-27] MEDS: IBUPROFEN 600 MG TABLET PO PRN ×2 (00:19→15:09)
[2020-11-27] MEDS: CEFTAROLINE 600 MG in SODIUM CHLORIDE 0.9% 100 ML IV SCH ×4 (00:20→23:58)
[2020-11-27 00:26] VITALS: BP 92/60
[2020-11-27] MEDS: OXYcodone IR 5MG TABLET PO PRN ×2 (05:10→18:07)
[2020-11-27] MEDS: ACETAMINOPHEN 325 MG TABLET PO PRN ×2 (05:10→18:06)
[2020-11-27 05:33] LABS: HCT (SEDRATE) 31.3 % (34.6-47.8)
[2020-11-27 05:37] LABS: BASOPHILS % (AUTO) 2 % (0-1); EOSINOPHILS % (AUTO) 8 % (1-7); LYMPHOCYTES % (AUTO) 38 % (22-44); MEAN CORPUSCULAR HEMOGLOBIN 30.8 pg (27.0-34.8); MEAN CORPUSCULAR HGB CONC 34.7 g/dL (32.4-35.8); MEAN PLATELET VOLUME 7.1 fL (7.4-10.4); MONOCYTES % (AUTO) 12 % (2-9); NEUTROPHILS % (AUTO) 41 % (42-75); PLATELET COUNT 202 x10^3/uL (130-400); RED BLOOD COUNT 3.54 x10^6/uL (3.82-5.3); RED CELL DISTRIBUTION WIDTH 16.2 % (9.6-15.2)
[2020-11-27 05:46] LABS: ALANINE AMINOTRANSFERASE 20 U/L (12-78); ANION GAP 6 mmol/L (5-15); C-REACTIVE PROTEIN, QUANT 0.29 mg/dL (0.02-0.49); CALCIUM 8.7 mg/dL (8.5-10.1); CHLORIDE 110 mmol/L (98-107)
[2020-11-27 05:48] LABS: ALKALINE PHOSPHATASE 60 U/L (45-117); BILIRUBIN,TOTAL 0.3 mg/dL (0.2-1.0); CREATININE 0.73 mg/dL (0.55-1.02); TOTAL PROTEIN 6.6 g/dL (6.4-8.2)
[2020-11-27 06:34] VITALS: BP 103/69
[2020-11-27 12:56] VITALS: BP 105/68
[2020-11-27 18:31] VITALS: BP 139/74
[2020-11-27] MEDS: TRAZODONE 100MG TABLET PO PRN (20:43)
[2020-11-27] MEDS: HYDROXYZINE PAMOATE 50MG CAP PO PRN (20:43)
[2020-11-27] MEDS: MELATONIN 3 MG TABLET PO PRN (20:43)
[2020-11-27] MEDS: ENOXAPARIN 40 MG/0.4 ML SQ SCH (20:43)
[2020-11-28] MEDS: OXYcodone IR 5MG TABLET PO PRN ×2 (07:04→18:45)
[2020-11-28] MEDS: ACETAMINOPHEN 325 MG TABLET PO PRN ×2 (07:04→18:44)
[2020-11-28] MEDS: CEFTAROLINE 600 MG in SODIUM CHLORIDE 0.9% 100 ML IV SCH ×2 (07:48→16:12)
[2020-11-28] MEDS: IBUPROFEN 600 MG TABLET PO PRN (11:16)
[2020-11-28 16:00] VITALS: BP 131/68
[2020-11-28 18:48] VITALS: BP 122/66
[2020-11-28] MEDS: HYDROXYZINE PAMOATE 50MG CAP PO PRN (20:54)
[2020-11-28] MEDS: MELATONIN 3 MG TABLET PO PRN (20:54)
[2020-11-28] MEDS: ENOXAPARIN 40 MG/0.4 ML SQ SCH (20:54)
[2020-11-28] MEDS: TRAZODONE 100MG TABLET PO PRN (20:54)
[2020-11-29] MEDS: CEFTAROLINE 600 MG in SODIUM CHLORIDE 0.9% 100 ML IV SCH ×3 (00:06→16:03)
[2020-11-29 06:53] VITALS: BP 110/70
[2020-11-29] MEDS: OXYcodone IR 5MG TABLET PO PRN (09:19)
[2020-11-29 13:23] VITALS: BP 89/53
[2020-11-29 19:25] VITALS: BP 113/64
[2020-11-29] MEDS: ACETAMINOPHEN 325 MG TABLET PO PRN (19:29)
[2020-11-29] MEDS ORDERED: OXYcodone IR 5MG TABLET PO PRN (19:30)
[2020-11-29] MEDS: HYDROXYZINE PAMOATE 50MG CAP PO PRN (20:21)
[2020-11-29] MEDS: ENOXAPARIN 40 MG/0.4 ML SQ SCH (20:22)
[2020-11-29] MEDS: MELATONIN 3 MG TABLET PO PRN (20:22)
[2020-11-29] MEDS: TRAZODONE 100MG TABLET PO PRN (20:22)
[2020-11-29] MEDS: GABAPENTIN 300 MG CAPSULE PO SCH (20:22)
[2020-11-30] MEDS ORDERED: OXYcodone IR 5MG TABLET PO PRN
[2020-11-30] MEDS: CEFTAROLINE 600 MG in SODIUM CHLORIDE 0.9% 100 ML IV SCH ×3 (00:08→17:07)
[2020-11-30 00:12] VITALS: BP 101/48
[2020-11-30 07:43] VITALS: BP 98/61
[2020-11-30] MEDS: GABAPENTIN 300 MG CAPSULE PO SCH (08:37)
[2020-11-30 13:52] VITALS: BP 120/65
[2020-11-30] MEDS: GABAPENTIN 400 MG CAPSULE PO SCH ×2 (16:37→20:34)
[2020-11-30] MEDS: SERTRALINE 50MG TABLET PO SCH (17:39)
[2020-11-30 20:06] VITALS: BP 120/84
[2020-11-30] MEDS: ENOXAPARIN 40 MG/0.4 ML SQ SCH (20:34)
[2020-11-30] MEDS: MELATONIN 3 MG TABLET PO PRN (20:34)
[2020-11-30] MEDS: HYDROXYZINE PAMOATE 50MG CAP PO PRN (20:34)
[2020-11-30] MEDS: TRAZODONE 100MG TABLET PO PRN (20:34)
[2020-12-01] MEDS: CEFTAROLINE 600 MG in SODIUM CHLORIDE 0.9% 100 ML IV SCH ×3 (01:11→17:20)
[2020-12-01 07:20] VITALS: BP 96/56
[2020-12-01] MEDS: IBUPROFEN 600 MG TABLET PO PRN (09:32)
[2020-12-01] MEDS: GABAPENTIN 400 MG CAPSULE PO SCH ×3 (09:32→20:33)
[2020-12-01 13:13] VITALS: BP_SYST 120; BP_SYST 121; BP_DIAS 70; BP_DIAS 80
[2020-12-01] MEDS: SERTRALINE 50MG TABLET PO SCH (17:37)
[2020-12-01 18:52] VITALS: BP 113/73
[2020-12-01] MEDS: MELATONIN 3 MG TABLET PO PRN (20:33)
[2020-12-01] MEDS: HYDROXYZINE PAMOATE 50MG CAP PO PRN (20:33)
[2020-12-01] MEDS: ENOXAPARIN 40 MG/0.4 ML SQ SCH (20:33)
[2020-12-01] MEDS: TRAZODONE 100MG TABLET PO PRN (20:33)
[2020-12-02] MEDS: CEFTAROLINE 600 MG in SODIUM CHLORIDE 0.9% 100 ML IV SCH ×3 (01:13→17:22)
[2020-12-02] MEDS: IBUPROFEN 600 MG TABLET PO PRN (01:13)
[2020-12-02 07:36] VITALS: BP 125/81
[2020-12-02] MEDS: GABAPENTIN 400 MG CAPSULE PO SCH ×3 (09:14→20:19)
[2020-12-02 14:44] VITALS: BP 110/73
[2020-12-02] MEDS: SERTRALINE 50MG TABLET PO SCH (17:22)
[2020-12-02] MEDS: MELATONIN 3 MG TABLET PO PRN (20:19)
[2020-12-02] MEDS: TRAZODONE 100MG TABLET PO PRN (20:19)
[2020-12-02] MEDS: HYDROXYZINE PAMOATE 50MG CAP PO PRN (20:19)
[2020-12-02] MEDS: ENOXAPARIN 40 MG/0.4 ML SQ SCH (20:19)
[2020-12-02 20:21] VITALS: BP 131/78
[2020-12-03] MEDS: CEFTAROLINE 600 MG in SODIUM CHLORIDE 0.9% 100 ML IV SCH ×2 (00:56→09:10)
[2020-12-03] MEDS: IBUPROFEN 600 MG TABLET PO PRN ×2 (00:56→09:10)
[2020-12-03] MEDS: GABAPENTIN 400 MG CAPSULE PO SCH (09:10)
[2020-12-03] MEDS ORDERED: LINE600T12 PO (15:31)
[2020-12-03] MEDS ORDERED: TRAZ-175 PO (15:34)
[2020-12-03] MEDS ORDERED: SERT25TA PO (15:34)
[2020-12-03] MEDS ORDERED: GABA300C PO (15:34)
[2020-12-03] MEDS ORDERED: MELA5TAB14 PO (15:35)
== END 2020-12-03 15:26 | disposition left against medical advice (07) | DRG 871 ==
LOC: ED 14:23 → EDIP 17:59 → 4EST 20:01 → 4WST 10-21 19:30 → 3N 11-08 22:30
PROVIDERS: ADMIT Internal Medicine; ATTEND Internal Medicine
PROC: 02HV33Z Insertion of Infusion Device into Superior Vena Cava, Percutaneous Approach (ICD-10-PCS; principal; 2020-10-31)
PROC: B548ZZA Ultrasonography of Superior Vena Cava, Guidance (ICD-10-PCS; 2020-10-31)
DX: A41.02 Sepsis due to Methicillin resistant Staphylococcus aureus (principal); I26.90 Septic pulmonary embolism without acute cor pulmonale; I33.0 Acute and subacute infective endocarditis; J15.9 Unspecified bacterial pneumonia; F33.1 Major depressive disorder, recurrent, moderate; I76 Septic arterial embolism; L03.115 Cellulitis of right lower limb; Q21.1 Atrial septal defect; R45.851 Suicidal ideations; Z20.822 Contact with and (suspected) exposure to COVID-19; B18.2 Chronic viral hepatitis C; D64.9 Anemia, unspecified; F10.10 Alcohol abuse, uncomplicated; F11.10 Opioid abuse, uncomplicated; F12.90 Cannabis use, unspecified, uncomplicated; I07.8 Other rheumatic tricuspid valve diseases; F15.10 Other stimulant abuse, uncomplicated; F17.210 Nicotine dependence, cigarettes, uncomplicated; F29 Unspecified psychosis not due to a substance or known physiological condition; F43.10 Post-traumatic stress disorder, unspecified; F90.9 Attention-deficit hyperactivity disorder, unspecified type; G47.00 Insomnia, unspecified; I07.1 Rheumatic tricuspid insufficiency; K05.6 Periodontal disease, unspecified; K59.00 Constipation, unspecified; L27.0 Generalized skin eruption due to drugs and medicaments taken internally; R13.10 Dysphagia, unspecified; S61.519A Laceration without foreign body of unspecified wrist, initial encounter; Z63.8 Other specified problems related to primary support group; Z98.891 History of uterine scar from previous surgery; Z79.899 Other long term (current) drug therapy; Z79.891 Long term (current) use of opiate analgesic; Z79.01 Long term (current) use of anticoagulants; Z88.8 Allergy status to other drugs, medicaments and biological substances; Z88.1 Allergy status to other antibiotic agents
CPT/HCPCS: 36415; 36573; 71045; 71275; 74170; 76700; 80048; 80053; 80061; 80202; 81003; 81025; 82040; 82550; 82565; 83036; 83605; 83735; 83880; 84100; 84145; 84439; 84443; 84484; 85025; 85610; 85651; 86140; 86592; 86704; 86705; 86706; 86708; 86709; 86803; 87040; 87077; 87147; 87186; 87340; 87521; 87522; 87635; 87806; 93005; 93306; 93312; 93321; 93325; 96374; 96375; 99285; G0378; J0295; J0696; J0712; J0878; J1650; J1885; J2997; J3370; Q9967; C1751; G0475; J1200; J7030; J7050; J7120; Q0163; Q0177

== ENCOUNTER 2021-01-08 12:28 | Emergency (ER) | payer MEDICAID, OTHER ==
[~2021-01-08] VITALS: Ht 177.8 cm; Wt 62.4 kg
[~2021-01-08 12:28] MED LIST: GABA300C PO; LINE600T12 PO; MELA5TAB14 PO; SERT25TA PO; TRAZ-175 PO
--- NOTE | 2021-01-08 14:05 | NUR ---
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
[2021-01-08 15:31] LABS: BASOPHILS % (AUTO) 1 % (0-1); EOSINOPHILS % (AUTO) 1 % (1-7); LYMPHOCYTES % (AUTO) 34 % (22-44); MEAN CORPUSCULAR HEMOGLOBIN 30.6 pg (27.0-34.8); MEAN CORPUSCULAR HGB CONC 34.5 g/dL (32.4-35.8); MEAN PLATELET VOLUME 7.9 fL (7.4-10.4); MONOCYTES % (AUTO) 8 % (2-9); NEUTROPHILS % (AUTO) 57 % (42-75); PLATELET COUNT 220 x10^3/uL (130-400); RED BLOOD COUNT 4.45 x10^6/uL (3.82-5.3); RED CELL DISTRIBUTION WIDTH 13.4 % (9.6-15.2)
[2021-01-08 15:42] LABS: ALANINE AMINOTRANSFERASE 28 U/L (12-78); ALBUMIN 3.8 g/dL (3.4-5.0); CALCIUM 8.9 mg/dL (8.5-10.1); CHLORIDE 110 mmol/L (98-107); CREATININE 0.59 mg/dL (0.55-1.02)
[2021-01-08 15:47] LABS: ALKALINE PHOSPHATASE 62 U/L (45-117); BILIRUBIN,TOTAL 0.3 mg/dL (0.2-1.0); TOTAL PROTEIN 7.4 g/dL (6.4-8.2)
[2021-01-08 16:00] LABS: ANION GAP 5 mmol/L (5-15)
[2021-01-08 16:35] VITALS: BP 100/67
== END 2021-01-08 17:54 | disposition home or self-care (01) ==
LOC: ED 12:58
DX: R07.89 Other chest pain (principal); R00.2 Palpitations; Z87.891 Personal history of nicotine dependence
CPT/HCPCS: 36415; 71045; 80053; 83880; 85025; 93005; 93970; 99285